=== PATIENT | female | born 1965 | race Caucasian/White ===

== ENCOUNTER 2022-03-09 06:06 | Day surgery (SDC) | payer OTHER ==
[~2022-03-09] VITALS: Ht 160 cm; Wt 68.9 kg
[2022-03-09] MEDS ORDERED: LIDOCAINE 1% 500 MG/50 ML VIAL ONE (07:03)
[2022-03-09] MEDS ORDERED: BUPIVACAINE-MPF/EPI 0.25% 10 ML VIAL INJ ONE (07:03)
[2022-03-09] MEDS ORDERED: ROCURONIUM 50 MG/5 ML VIAL IV ONE ×2 (08:00→08:48)
[2022-03-09] MEDS ORDERED: GLYCOPYRROLATE 1 MG TAB ONE (08:00)
[2022-03-09] MEDS ORDERED: fentaNYL citrate 0.05 MG/ML - 50mL vial IV ONE (08:00)
[2022-03-09] MEDS ORDERED: PROPOFOL 200 MG/20 ML VIAL IV ONE ×2 (08:00→08:47)
[2022-03-09] MEDS ORDERED: ceFAZolin 2,000 MG VIAL ONE (08:00)
[2022-03-09] MEDS ORDERED: fentaNYL citrate 0.05 MG/ML VIAL ONE (08:10)
[2022-03-09] MEDS ORDERED: ONDANSETRON 4 MG/2 ML VIAL ONE (08:48)
[2022-03-09] MEDS ORDERED: KETOROLAC 30 MG/ML VIAL ONE (08:48)
[2022-03-09] MEDS ORDERED: ceFAZolin 1,000 MG VIAL ONE ×2 (08:48)
[2022-03-09] MEDS ORDERED: NEOSTIGMINE 1:1000 10 MG/10 ML VIAL ONE (09:15)
[2022-03-09] MEDS ORDERED: GLYCOPYRROLATE 0.2 MG/ML VIAL ONE ×5 (09:15)
[2022-03-09] MEDS: HYDROmorphone 1 MG/ML AMP IVP PRN ×4 (09:40→10:10)
[2022-03-09] MEDS ORDERED: HYDROmorphone PFS 2 MG/ML SYR ONE (09:42)
[2022-03-09] MEDS ORDERED: LABETALOL 20 MG/4 ML VIAL IVP PRN (09:43)
[2022-03-09] MEDS ORDERED: hydrALAZINE 20 MG/ML VIAL IVP PRN (09:43)
[2022-03-09] MEDS ORDERED: METOCLOPRAMIDE 10 MG/2 ML INJ VIAL IVP PRN (09:43)
[2022-03-09] MEDS ORDERED: BLOOD GLUCOSE MONITORING 1 DEV DEV FS ONE (09:45)
[2022-03-09] MEDS ORDERED: LACTATED RINGERS 1,000 ML IV SCH (09:45)
== END 2022-03-09 12:05 | disposition home or self-care (01) ==
LOC: MDS 06:06 → MMU 06:06 → MDS 12:05
PROVIDERS: ATTEND Surgery
DX: K80.10 Calculus of gallbladder with chronic cholecystitis without obstruction (principal); I10 Essential (primary) hypertension; E78.00 Pure hypercholesterolemia, unspecified; E11.9 Type 2 diabetes mellitus without complications; Z90.710 Acquired absence of both cervix and uterus; Z85.828 Personal history of other malignant neoplasm of skin
CPT/HCPCS: 47563; 71045; 74300; 82948; 87426; 93005; J0690; J1170; J1885; J2001; J2405; J2704; J2710; J3010; J3490; J7120